=== PATIENT | male | born 1995 | race Asian ===

== ENCOUNTER 2018-06-07 01:41 | Emergency (ER) | payer OTHER ==
[~2018-06-07] VITALS: Ht 175.3 cm; Wt 88.5 kg
[2018-06-07 01:49] VITALS: Ht 175.3 cm; Wt 88.5 kg
[2018-06-07 03:29] VITALS: BP 144/88
== END 2018-06-07 03:29 | disposition left against medical advice (07) ==
LOC: ED 01:41
DX: Z53.21 Procedure and treatment not carried out due to patient leaving prior to being seen by health care provider (principal)